=== PATIENT | female | born 1985 | race Hispanic/Latino ===

== ENCOUNTER → 2018-01-28 | Outpatient (REF) | payer OTHER | LOC: M SFHCLERA 19:21 | DX: J02.9 Acute pharyngitis, unspecified (principal) ==

== ENCOUNTER → 2018-04-20 | Outpatient (REF) | payer OTHER | LOC: M SFHCLUC 04-21 11:23 | DX: N30.01 Acute cystitis with hematuria (principal) ==

== ENCOUNTER → 2018-04-20 | Outpatient (REF) | payer OTHER | LOC: M SFHCLERA 18:41 | DX: N30.01 Acute cystitis with hematuria (principal) ==

== ENCOUNTER → 2018-11-10 | Outpatient (REF) | payer OTHER ==
[2018-11-10 12:58] LABS: BASO % 0.7 % (0.0-1.0); EOS # 0.1 10^3/uL (0.0-0.50); EOS % 1.2 % (0.0-3.0); HEMATOCRIT 39.2 % (36.0-47.0); HEMOGLOBIN 13.3 g/dl (12.0-15.5); LYMPH % 17.9 % (24.0-44.0); MEAN CORPUSCULAR HGB CONC 33.9 g/dl (32.0-36.5); MEAN CORPUSCULAR VOLUME 91.4 fl (80.0-96.0); MONO # 0.4 10^3/uL (0.0-0.8); NEUTROPHILS # 4.2 10^3/uL (1.8-7.7); NEUTROPHILS % 72.7 % (36.0-66.0); PLATELET COUNT, AUTOMATED 213 10^3/uL (150-450); RED BLOOD COUNT 4.29 10^6/uL (4.00-5.40); WHITE BLOOD COUNT 5.7 10^3/uL (4.0-10.0)
[2018-11-10 13:22] LABS: ERYTHROCYTE SEDIMENTATION RATE 7 mm/hr (0-20)
[2018-11-10 13:26] LABS: ALBUMIN 4.1 GM/DL (3.2-5.2); ALT/SGPT 16 U/L (12-78); BLOOD UREA NITROGEN 13 MG/DL (7-18); C REACTIVE PROTEIN QUANTITATIV < 0.30 MG/DL (0.00-0.30); CALCIUM LEVEL 8.8 MG/DL (8.5-10.1); CARBON DIOXIDE LEVEL 29 MEQ/L (21-32); CHLORIDE LEVEL 105 MEQ/L (98-107); COMPLEMENT C3 117 MG/DL (90-180); COMPLEMENT C4 21 MG/DL (10-40); CREATININE FOR GFR 0.66 MG/DL (0.55-1.30); GLOMERULAR FILTRATION RATE > 60.0 (>60); GLUCOSE, FASTING 77 MG/DL (70-100); POTASSIUM SERUM 4.4 MEQ/L (3.5-5.1); SODIUM LEVEL 138 MEQ/L (136-145); TOTAL PROTEIN 7.5 GM/DL (6.4-8.2)
[2018-11-10 22:11] LABS: APPEARANCE, URINE HAZY (CLEAR); BACTERIA, URINE AUTO 1+ (NEGATIVE); BILIRUBIN, URINE AUTO NEGATIVE (NEGATIVE); BLOOD, URINE BLOOD NEGATIVE (NEGATIVE); COLOR, URINE YELLOW (YELLOW); GLUCOSE, URINE (UA) AUTO NEGATIVE (NEGATIVE); KETONE, URINE AUTO NEGATIVE (NEGATIVE); LEUKOCYTE ESTERASE, URINE AUTO TRACE (NEGATIVE); MUCUS, URINE SMALL (NEGATIVE); NITRITE, URINE AUTO NEGATIVE (NEGATIVE); PROTEIN, URINE AUTO NEGATIVE (NEGATIVE); RBC, URINE AUTO 4 /HPF (0-3); SPECIFIC GRAVITY URINE AUTO 1.025 (1.002-1.035); SQUAMOUS EPITHELIAL CELL UR AU 0 /HPF (0-6); WBC, URINE AUTO 11 /HPF (0-3)
[2018-11-10 22:23] LABS: TOTAL PROTEIN,RANDOM URINE 7.6 MG/DL (0.0-12.0)
[2018-11-11 16:21] LABS: ANTI DOUBLE STRAND-DNA AB <1 IU/mL (0-9); RNP ANTIBODY < 0.2 AI (0.0-0.9); SMITHS ANTIBODY < 0.2 AI (0.0-0.9); SSA SJOGRENS A 2.2 AI (0.0-0.9); SSB SJOGRENS B <0.2 AI (0.0-0.9)
[2018-11-12 00:06] LABS: ANA (HEP2) Positive (.)
== END ==
LOC: M SFHCPLAZ 09:57
PROVIDERS: ATTEND Internal Medicine Rheumatology
DX: M35.01 Sjogren syndrome with keratoconjunctivitis (principal)

== ENCOUNTER → 2020-11-30 | Outpatient (CLI) | payer OTHER ==
[~2020-11-30] MED LIST: ISOVUE-370 76% 100ML VIAL As Ordered ONE
--- NOTE | 2020-11-30 12:40 | ROOPDOC ---
[facility] Report Of Operation Report of Operation REPRODUCTIVE ENDOCRINOLOGY HSG PROCEDURE NOTE PRE-PROCEDURE DIAGNOSIS: 1) Infertility POST-PROCEDURE DIAGNOSIS: Same PHYSICIAN PERFORMING PROCEDURE: Noe Boyd DO CONSENT: The HSG procedure, indication, risks, and benefits were discussed with the patient and informed written consent was obtained. PATIENT COUNSELLED IN REGARDS TO HSG RISKS AND BENEFITS TO INCLUDE INFECTION, DISRUPTION OF , BLEEDING, AND PAIN. FINAL TIME OUT PERFORMED IMMEDIATELY PRIOR TO HSG. PROCEDURE: STERILE SPECULUM PLACED CERVIX CLEANSED WITH BETADINE TRIPLE SWAB TENACULUM UTILIZED (YES) HSG CATHETER PASSED, BALLOON INFLATED APPROX 50mL OF ISOVUE CONTRAST WAS INFUSED AP AND OBLIQUE IMAGES WERE OBTAINED PRELIMINARY FINDINGS: 1) UTERINE FINDINGS NORMAL 2) LEFT FALLOPIAN TUBE PATENT 3) RIGHT FALLOPIAN TUBE PATENT PATIENT TOLERATED THE PROCEDURE WELL DISCHARGED TO HOME WITH PRECAUTIONS ANTIBIOTICS RECOMMENDED: NO COMPLICATIONS: NONE DISCHARGE INSTRUCTIONS GIVEN PATIENT TO F/U WITH ORDERING PROVIDER FOR FINAL IMPRESSION AND CLINICAL CO RRELATION APPROX TIME: 10 MIN COUNSELLING 20 MIN IN PROCEDURE NOE BOYD DO Nov 30, 2020 12:40
--- NOTE | 2020-11-30 18:10 | REP ---
INDICATION: INFERTILITY. COMPARISON: None. TECHNIQUE: The endometrium was cannulated and contrast was injected by the attending household appliance installer Dr. Cintron. Fluoroscopic spot films were acquired by Tessie Song [facility], under the direct supervision of Dr. Moon. Images reviewed prior with Dr. Moon to dictation. FINDINGS: Fluoroscopy spot radiographs document filling of a normal endometrial cavity. The uterus is anteverted. There is normal isthmic and ampullary fallopian tube opacification, and bilateral tubal patency was documented. IMPRESSION: Normal hysterosalpingogram with bilateral tubal patency documented. 2.4 minutes of fluoroscopy time was utilized for this procedure. Some fluoroscopic images are performed with last image hold technology. These images require no additional radiation. <Electronically signed by Tessie Song > 11/30/20 1719 <Electronically signed by Valentin Moon > 11/30/20 1801
== END ==
LOC: M RADPRO 11:19
PROVIDERS: ATTEND Obstetrics & Gynecology
DX: N97.9 Female infertility, unspecified (principal)
CPT/HCPCS: 58340; 74740; Q9967